=== PATIENT | female | born 1960 | race Caucasian/White ===

== ENCOUNTER → 2019-01-13 | Outpatient (CLI) | payer BC, OTHER | LOC: RAD 12:23 | DX: Z12.31 Encounter for screening mammogram for malignant neoplasm of breast (principal); F17.200 Nicotine dependence, unspecified, uncomplicated; Z88.8 Allergy status to other drugs, medicaments and biological substances; Z78.0 Asymptomatic menopausal state ==

== ENCOUNTER → 2019-02-10 | Outpatient (CLI) | payer BC, OTHER | LOC: RAD 01:16 | DX: R92.0 Mammographic microcalcification found on diagnostic imaging of breast (principal); M81.0 Age-related osteoporosis without current pathological fracture ==

== ENCOUNTER 2019-04-12 12:52 | Emergency (ER) | payer BC, OTHER ==
[~2019-04-12] VITALS: Ht 160 cm; Wt 65.8 kg
[2019-04-12 13:10] LABS: ABSOLUTE NEUTROPHILS 4.3 thou/uL (1.4-8.2); EOSINOPHILS 0.5 % (0.0-3.0); HEMATOCRIT 41.1 % (37.0-47.0); HEMOGLOBIN 14.2 gm/dL (12.0-15.0); LYMPHOCYTES 27.6 % (24.0-44.0); MCH 31.7 pg (26.0-34.0); MCHC 34.6 g/dL (28.0-37.0); MCV 91.8 fL (80.0-100.0); MONOCYTES 6.6 % (1.0-8.0); PLATELET COUNT 232 thou/uL (150-400); POLYS 64.3 % (36.0-66.0); RBC 4.48 mil/uL (4.20-5.00); RDW 13.8 % (10.5-14.5); WBC 6.7 thou/uL (4.0-11.0)
[2019-04-12 13:19] LABS: ANION GAP 9 mmol/L (7-16); BUN 14 mg/dL (7-18); CALCIUM 9.7 mg/dL (8.5-10.1); CHLORIDE 99 mmol/L (98-107); CO2 26 mmol/L (21-32); CREATININE 0.9 mg/dL (0.6-1.0); GLUCOSE 101 mg/dL (74-106); POTASSIUM 4.4 mmol/L (3.5-5.1); SODIUM 134 mmol/L (136-145)
[2019-04-12] MEDS ORDERED: BYSTOLIC 5 MG5 M1 PO (13:24)
[2019-04-12] MEDS ORDERED: LIPITOR10 MG PO (13:25)
[2019-04-12] MEDS ORDERED: TYMLOS1.56 ML SUBQ (13:28)
[2019-04-12 13:29] LABS: ALBUMIN 4.2 g/dL (3.4-5.0); SGOT 7 U/L (15-37); SGPT 10 U/L (30-65); TOTAL BILIRUBIN 0.7 mg/dL (<0.1-1.0); TOTAL PROTEIN 8.5 g/dL (6.4-8.2); TROPONIN-I <0.06 ng/mL (<0.06)
[2019-04-12 14:22] LABS: URINE BILIRUBIN NEGATIVE (Negative); URINE BLOOD NEGATIVE (Negative); URINE CLARITY CLEAR; URINE COLOR YELLOW; URINE GLUCOSE-RANDOM* NEGATIVE (Negative); URINE KETONES NEGATIVE (Negative); URINE LEUKOCYTES-REFLEX NEGATIVE (Negative); URINE NITRITE-REFLEX NEGATIVE (Negative); URINE PROTEIN (DIPSTICK) NEGATIVE (Negative); URINE SPECIFIC GRAVITY <= 1.005 (1.005-1.035); URINE UROBILINOGEN 0.2 E.U./dl (0.2-1.0)
[2019-04-12 14:35] LABS: AMP/METHAMP Negative (Negative); BARBITURATES Negative (Negative); BENZODIAZEPINES Negative (Negative); COCAINE Negative (Negative); METHADONE Negative (Negative); OPIATES Negative (Negative); PCP Negative (Negative)
[2019-04-12] MEDS ORDERED: ASA5UEC PO (14:57)
[2019-04-12 15:03] VITALS: BP 140/61
[2019-04-12 18:45] LABS: POC CA IONIZED 4.6 mg/dL (4.5-5.3); POC HEMOGLOBIN 14.6 g/dL (12.0-15.0); POC POTASSIUM 4.4 mmol/L (3.5-5.1)
== END 2019-04-12 15:03 | disposition home or self-care (01) ==
LOC: ER 12:52
PROVIDERS: Student in an Organized Health Care Education/Training Program
DX: R51 Headache (principal); H53.8 Other visual disturbances; R41.82 Altered mental status, unspecified; F17.210 Nicotine dependence, cigarettes, uncomplicated; Z79.899 Other long term (current) drug therapy